=== PATIENT | male | born 1955 | race Caucasian/White ===

== ENCOUNTER 2021-07-20 21:16 | Emergency (ER) | payer MEDICARE, OTHER ==
[~2021-07-20] VITALS: Ht 180.3 cm; Wt 90.7 kg
[2021-07-20 22:32] LABS: Neutrophils % (auto) 63.7 % (37.0-80.0); White Blood Cell 6.5 10^3/uL (4.4-10.8)
[2021-07-20 22:33] LABS: Basophils # (auto) 0.1 10 ^3/uL (0-0.2); Basophils % (auto) 0.9 % (0.0-2.0); Eosinophils # (auto) 0.1 10 ^3/uL (0-0.8); Eosinophils % (auto) 1.1 % (0.0-7.0); Hematocrit 42.9 % (41.0-53.0); Hemoglobin 14.4 g/dL (13.5-17.5); Lymphocytes # (auto) 1.5 10 ^3/uL (0.4-5.4); Lymphocytes % (auto) 23.1 % (10.0-50.0); Mean Corpuscular Hemoglobin 30.2 pg (28.0-32.0); Mean Corpuscular Hgb Conc. 33.6 g/dL (32.0-36.0); Mean Corpuscular Volume 89.9 fL (80.0-100.0); Monocytes # (auto) 0.7 10 ^3/uL (0-1.3); Monocytes % (auto) 11.2 % (0.0-12.0); Neutrophils # (auto) 4.1 10 ^3/uL (1.6-8.6); Nucleated Red Blood Cells % 0.1 %; Red Blood Cells 4.77 10^6/uL (4.5-5.90); Red Cell Distribution Width 14.2 % (11.8-14.3)
[2021-07-20 22:48] LABS: Albumin 3.9 g/dL (3.4-5.0); BUN/Creatinine Ratio 13.6; Potassium 4.1 mmol/L (3.5-5.1)
[2021-07-20 22:51] LABS: Bilirubin, Total 0.6 mg/dL (0.2-1.0); Total Protein 7.2 g/dL (6.4-8.2)
[2021-07-20] MEDS ORDERED: ONDANSETRON HCL 4 MG/2 ML VIAL IV ONE (23:00)
[2021-07-20] MEDS ORDERED: SODIUM CHLORIDE 0.9% 1,000 ML IV ONE (23:00)
[2021-07-21 00:41] VITALS: BP 137/88
[2021-07-21 01:28] LABS: Urine Bacteria NONE SEEN /hpf (None Seen); Urine Blood Negative /uL (Negative); Urine Specific Gravity 1.021 (1.001-1.035); Urine WBC <1 /hpf (0 - 3)
[2021-07-21] MEDS ORDERED: CIPR-173 PO (02:06)
[2021-07-21] MEDS ORDERED: PERCOT PO (02:06)
[2021-07-21] MEDS ORDERED: METR500T PO (02:06)
== END 2021-07-21 02:10 | disposition home or self-care (01) ==
LOC: ER 21:16
DX: K52.9 Noninfective gastroenteritis and colitis, unspecified (principal); E11.9 Type 2 diabetes mellitus without complications; N18.9 Chronic kidney disease, unspecified
CPT/HCPCS: 36415; 71045; 74176; 80053; 81001; 83690; 84484; 85025; 93005; 96361; 96374; 99285; J2405; J7030